=== PATIENT | male | born 1950 | race Caucasian/White ===

== ENCOUNTER 2021-06-15 18:38 | Emergency (ER) | payer MEDICARE, OTHER ==
[~2021-06-15] VITALS: Ht 172.7 cm; Wt 76.7 kg
[2021-06-15] MEDS ORDERED: diphenhydrAMINE 50MG/ML VIAL (J1200) IV STA (19:07)
[2021-06-15] MEDS ORDERED: FAMOTIDINE IV BAG 20 MG in IV 1 EA IV ONE (19:10)
[2021-06-15] MEDS ORDERED: methylPREDNISolone 125MG 2ML VIAL IV ONE (19:10)
[2021-06-15] MEDS ORDERED: BENA25CA4 PO (21:29)
[2021-06-15] MEDS ORDERED: PEPC1TAB5 PO (21:29)
[2021-06-15] MEDS ORDERED: PRED20TA PO (21:29)
[2021-06-15] MEDS ORDERED: EPIP0.3I2 IM (21:32)
[2021-06-15 22:20] VITALS: BP 121/72
== END 2021-06-15 22:21 | disposition home or self-care (01) ==
LOC: M ED 18:38
DX: T78.2XXA Anaphylactic shock, unspecified, initial encounter (principal); I10 Essential (primary) hypertension; Z79.899 Other long term (current) drug therapy
CPT/HCPCS: 71045; 96365; 96375; 99283; J1200; J2930